=== PATIENT | male | born 1960 | race Caucasian/White ===

== ENCOUNTER 2019-08-26 08:21 | Emergency (ER) | payer BC ==
--- NOTE | 2019-08-26 09:27 | UC ---
Respiratory Complaint HPI - HPI Summary HPI Summary: 59-year-old male comes in with a chief complaint of cough chest congestion sore throat. Since June 2019 patient's had several episodes of similar symptoms with chest congestion is bringing up sputum that is sometimes yellow sometimes more clear. He has been traveling in fair amount between [place] [place] and [facility]. No history of asthma or COPD he does smoke cigars rarely.. No chest pain no complaint of shortness of breath. Has been trying [id number] medications which do help some with the symptoms. Patient had a 2 week course in June that was relatively severe and it did improve in July had another episode and he feels like he never truly get better from the July episode. No complaint of any edema. Patient has had occasional wheezing with these episodes. - History of Current Complaint Chief Complaint: UCRespiratory Stated Complaint: SORE THROAT CHEST CONGESTION RESP ISSUE Time Seen by Provider: 08/26/19 09:13 Pain Intensity: 5 - Allergies/Home Medications Allergies/Adverse Reactions: Allergies Allergy/AdvReac Type Severity Reaction Status Date / Time No Known Allergies Allergy Verified 08/26/19 08:39 Home Medications: Home Medications D-Methorphan/PE/Acetaminophen [Vicks Dayquil Cold & Flu] 1 cap PO 08/26/19 [ History] Phenylephrine/Dm/Acetaminop/GG [Tylenol Cold-Flu Severe Caplet] 1 each PO [History] PMH/Surg Hx/FS Hx/Imm Hx Previously Healthy: Yes - Surgical History Surgical History: Yes Surgery Procedure, Year, and Place: appy, magnet removal, acl reconstruction lt knee x2. - Family History Known Family History: Positive: Non-Contributory - Social History Alcohol Use: Daily Substance Use Type: None Smoking Status (MU): Current Some Day Smoker Household Exposure Type: Cigars Review of Systems All Other Systems Reviewed And Are Negative: Yes Constitutional: Positive: Other - SEE HPI Skin: Positive: Negative Eyes: Positive: Negative ENT: Positive: Sore Throat, Nasal Discharge Respiratory: Positive: Cough, Other - SEE HPI Cardiovascular: Positive: Negative Gastrointestinal: Positive: Negative Motor: Positive: Negative Neurovascular: Positive: Negative Musculoskeletal: Positive: Negative Neurological: Positive: Negative Psychological: Positive: Negative Is Patient Immunocompromised?: No Physical Exam Triage Information Reviewed: Yes Appearance: Well-Appearing, No Pain Distress, Well-Nourished Vital Signs: Initial Vital Signs Temp 97.7 F 08/26/19 08:33 Pulse 50 08/26/19 08:33 Resp 18 08/26/19 08:33 BP 115/77 08/26/19 08:33 Pulse Ox 99 08/26/19 08:33 Vital Signs Reviewed: Yes Eye Exam: Normal Eyes: Positive: Conjunctiva Clear ENT: Positive: Pharynx normal, Nasal congestion, TMs normal, Other - TMs are normal. Bilaterally in the ear canal there is small 2-3 mm marcelino colored lesions. Neck: Positive: Supple Respiratory: Positive: Lungs clear, Normal breath sounds, No respiratory distress Cardiovascular: Positive: RRR Musculoskeletal: Positive: Strength Intact, ROM Intact Neurological: Positive: Alert Psychological: Positive: Age Appropriate Behavior Skin Exam: Normal Respiratory Course/Dx - Course Course Of Treatment: Special Makeup Fx Artist Instructor: Aravind Hayes F ([id number]) [place] Press Operator: THOMAS, ( NUANCE) Report Date: 08/26/2019 09:22:00 Report Status: Final ====== Start of Report Content Patient Name: SANDRINE MCLAUGHLIN Medical Record#: [id number] Ordering Physician: Eliezer Vásquez MD Acct.#: [id number] : Age: 59 Sex: M Location: [facility] Exam Date: 08/26/19921 ADM Status: REG ER Order Information: CHEST PA LAT 2 VWS Accession Number: [id number] CPT: 68493 INDICATION: Cough. COMPARISON: There are no prior studies available for comparison. TECHNIQUE: Dual-energy PA and lateral views of the chest were obtained. FINDINGS: The heart is within normal limits in size. Mediastinal and hilar contours appear within normal limits. The lungs are hyperinflated and clear. No pleural effusion is seen. IMPRESSION: NO EVIDENCE FOR ACTIVE CARDIOPULMONARY DISEASE. <Electronically signed by Aravind Hayes MD in OV> 08/26/19954 Dictated By: Aravind Hayes MD Dictated Date/Time: 08/26/19954 Transcribed Date/Time: 08/26/19954 Copy to: CC:No Primary Care Phys,NOPCP ; Eliezer Vásquez MD Imaging - [facility] Imaging - [facility] Imaging - [facility] [id number] [place] [id number] ph ([phone]) ph ) ph ([phone]) End of Report Content I discussed the chest x-ray results with the patient. Patient's having recurrent bronchitis with bronchospasm symptoms. Is not truly cleared from his July 2019 symptoms therefore symptoms have been past 10 days. We'll treat with a azithromycin and also albuterol as needed. Plan follow-up his primary care doctor get reevaluated sooner if worse. Patient does have small peripherally lesions in both ear canals and I discussed this with him he reports that he had some lesions in his ear canals checked by an ENT several years ago and I recommended that he get this reevaluated again any grief when he gets home he will get his ENT to reevaluate these. - Differential Dx/Diagnosis Provider Diagnosis: Bronchitis with bronchospasm, Lesion of external ear canal Discharge ED - Sign-Out/Discharge Documenting (check all that apply): Patient Departure All imaging exams completed and their final reports reviewed: Yes - Discharge Plan Condition: Stable Disposition: HOME Prescriptions: Albuterol HFA INHALER* [Ventolin HFA Inhaler*] 2 puff INH Q4H PRN #1 mdi PRN Reason: Wheezing Azithromyxin NIKO (NF) [Z-Niko (Zithromax) 250 mg tabs #6] 2 tab PO .TODAY, THEN 1 DAILY #6 tab Patient Education Materials: Acute Bronchitis (ED), Bronchospasm (ED) Referrals: [facility] [Outside] Additional Instructions: FOLLOW UP WITH YOUR DOCTOR IF NOT COMPLETELY IMPROVED. Follow-up with your ENT to reevaluate the lesions in your ear canals. GET RECHECKED SOONER IF YOUR CONDITION WORSENS OR ANY QUESTIONS OR CONCERNS. - Billing Disposition and Condition Condition: STABLE Disposition: Home
== END 2019-08-26 10:20 | disposition home or self-care (01) ==
LOC: UCEAST 08:21
DX: J40 Bronchitis, not specified as acute or chronic (principal); J98.01 Acute bronchospasm; H93.8X3 Other specified disorders of ear, bilateral; F17.210 Nicotine dependence, cigarettes, uncomplicated
CPT/HCPCS: 71046; 99202; G0463